=== PATIENT | female | born 1975 | race Caucasian/White ===

== ENCOUNTER 2017-01-22 15:32 | Emergency (ER) | payer BC, OTHER ==
[2017-01-22] MEDS ORDERED: EPINEPHrine 1 MG/ML SDV ONE (15:44)
[2017-01-22] MEDS ORDERED: methylPREDNISolone Sodium Succinate 125 MG/2 ML SDV ONE (15:45)
[2017-01-22] MEDS ORDERED: diphenhydrAMINE 50 MG/ML SDV ONE (15:45)
[2017-01-22 15:50] VITALS: BP 136/78
[2017-01-22] MEDS ORDERED: Sodium Chloride 0.9% 1,000 ML IV ONE (15:52)
[2017-01-22] MEDS ORDERED: diphenhydrAMINE 50 MG/ML SDV IVPUSH ONE (15:58)
[2017-01-22] MEDS ORDERED: EPINEPHrine 1 MG/ML SDV IM ONE (15:59)
[2017-01-22] MEDS ORDERED: methylPREDNISolone Sodium Succinate 125 MG/2 ML SDV IVPUSH ONE (15:59)
--- NOTE | 2017-01-22 17:07 | EDM.PDOC ---
ED HPI GENERAL MEDICAL PROBLEM - General Chief Complaint: Allergic Reaction Stated Complaint: ALLERGIC REACTION Time Seen by Provider: 01/22/17 15:47 Source of Information: Reports: Patient History Limitations: Reports: No Limitations - History of Present Illness INITIAL COMMENTS - FREE TEXT/NARRATIVE: The patient is a 41-year-old female with a known shellfish allergy who presents with an allergic reaction presumably to shellfish. She ate some sort of a roll from an restaurant that she suspects was containing shellfish. She very quickly began having shortness of breath, wheezing, and immediately came to the emergency department. She did not have access to her EpiPen so did not have any medications prior to arrival except for Benadryl. She states she drank this small cupful of the liquid Benadryl prior to arrival. No throat swelling or tongue swelling. Her main complaint is wheezing and coughing and shortness of breath. No rash or itching. States this feels similar to prior anaphylactic reactions that she's had previously. No recent illness. - Related Data Allergies Allergy/AdvReac Type Severity Reaction Status Date / Time morphine Allergy Intermediate Rash Verified 01/22/17 15:46 Penicillins Allergy Intermediate Rash Verified 01/22/17 15:46 Sulfa (Sulfonamide Allergy Intermediate Rash Verified 01/22/17 15:46 Antibiotics) hydromorphone HCl Allergy Itching Verified 01/22/17 15:46 [From Dilaudid] shellfish derived Allergy Anaphylactic Verified 01/22/17 15:46 Shock Home Meds: Home Meds Ondansetron [Zofran ODT] 4 mg PO Q6H PRN #20 tab.dis 09/26/15 [Rx] Orphenadrine [Norflex] 100 mg PO TID PRN #20 tab.er 09/26/15 [Rx] Progesterone,Micronized [Progesterone] 50 mg PO ASDIRECTED 09/26/15 [History] EPINEPHrine [Epipen] 0.3 mg IM ONETIME PRN #1 pack 01/22/17 [Rx] Past Medical History - Past Health History Medical/Surgical History: Denies Medical/Surgical History Genitourinary History: Reports: UTI, Recurrent Musculoskeletal History: Reports: Neck Pain, Chronic, Osteoarthritis, Other ( See Below) Neurological History: Reports: Migraines - Past Surgical History Other HEENT Surgeries/Procedures: Oral surgery bone implant left upper maxilla Neurological Surgical History: Reports: C-Spine Musculoskeletal Surgical History: Reports: Shoulder Surgery Social & Family History - Tobacco Use Smoking Status *Q: Never Smoker Years of Tobacco use: 24 Packs/Tins Daily: 0.3 Used Tobacco, but Quit: No Second Hand Smoke Exposure: No - Alcohol Use Days Per Week of Alcohol Use: 0 - Recreational Drug Use Recreational Drug Use: No - Living Situation & Occupation Living situation: Reports: , with Family Occupation: Employed ED ROS ALLERGIC REACTION - Review of Systems Review Of Systems: See Below Constitutional: Denies: Fever HEENT: Denies: Throat Pain Respiratory: Reports: Shortness of Breath, Wheezing Cardiovascular: Denies: Chest Pain Endocrine: Reports: No Symptoms GI/Abdominal: Denies: Vomiting Skin: Denies: Rash Neurological: Reports: No Symptoms ED EXAM GENERAL NO PERIP PULSE - Physical Exam Exam: See Below Exam Limited By: No Limitations General Appearance: Alert, Moderate Distress, Other (Coughing, wheezing) Eye Exam: Bilateral Eye: Normal Inspection Ears: Normal External Exam Nose: Normal Inspection, Normal Mucosa, No Blood Throat/Mouth: Normal Inspection, Normal Lips, Normal Oropharynx, Normal Voice, No Airway Compromise Head: Atraumatic, Normocephalic Neck: Normal Inspection, Supple, Non-Tender, Full Range of Motion Respiratory/Chest: Other (Mild tachypnea, mild distress, intractable coughing, mild wheezing in all vtial) Cardiovascular: Regular Rate, Rhythm, No Murmur, Tachycardia GI/Abdominal: Soft, Non-Tender, No Distention Extremities: Normal Inspection Neurological: Alert, Oriented, Normal Cognition, No Motor/Sensory Deficits Psychiatric: Normal Affect, Normal Mood Skin Exam: Warm, Dry, Intact, Normal Color Course - Vital Signs Last Recorded V/S: Last Vital Signs Temp 36.0 C 01/22/17 15:46 Pulse 99 01/22/17 15:46 Resp 18 01/22/17 15:46 BP 136/78 01/22/17 15:46 Pulse Ox 100 01/22/17 15:46 - Orders/Labs/Meds Meds: Medications Discontinued Medications Generic Name Dose Route Start Last Admin Trade Name Freq PRN Reason Stop Dose Admin Diphenhydramine HCl Confirm 01/22/17 15:45 01/22/17 16:03 Benadryl Administered 01/22/17 15:46 Not Given Dose 50 mg .ROUTE .STK-MED ONE Diphenhydramine HCl 25 mg 01/22/17 15:58 01/22/17 15:40 Benadryl IVPUSH 01/22/17 15:59 25 mg ONETIME ONE Administration Epinephrine HCl Confirm 01/22/17 15:44 01/22/17 16:04 Adrenalin 1:1000 Administered 01/22/17 15:45 Not Given Dose 1 mg .ROUTE .STK-MED ONE Epinephrine HCl 0.3 mg 01/22/17 15:59 01/22/17 15:40 Adrenalin 1:1000 IM 01/22/17 16:00 0.3 mg ONETIME ONE Administration Sodium Chloride 1,000 mls @ 1,000 mls/hr 01/22/17 15:52 01/22/17 16:11 Normal Saline IV 01/22/17 16:51 1,000 mls/hr ONETIME ONE Administration Methylprednisolone Sodium Succinate Confirm 01/22/17 15:45 01/22/17 16:03 Solu-Medrol Administered 01/22/17 15:46 Not Given Dose 125 mg .ROUTE .STK-MED ONE Methylprednisolone Sodium Succinate 125 mg 01/22/17 15:59 01/22/17 15:40 Solu-Medrol IVPUSH 01/22/17 16:00 125 mg ONETIME ONE Administration - Re-Assessments/Exams Free Text/Narrative Re-Assessment/Exam: 01/22/17 17:06 Patient markedly improved after IM epinephrine and IV solu-medrol and benadryl. Will observe. 01/22/17 18:04 Feeling much better. Requesting discharge. Discussed risk of biphasic reaction /recurrence of symptoms. Patient strongly prefers to be discharged. She lives nearby and is being discharged with rx for epipen. She will return if symptoms recur. Discussed return precautions. Departure - Departure Time of Disposition: 18:05 Disposition: Home, Self-Care 01 Clinical Impression: Anaphylaxis due to crustaceans Qualifiers: Encounter type: initial encounter Qualified Code(s): T78.02XA - Anaphylactic reaction due to shellfish (crustaceans), initial encounter - Discharge Information Prescriptions: EPINEPHrine [Epipen] 0.3 mg IM ONETIME PRN #1 pack PRN Reason: allergic reaction Referrals: Susana Miranda PA [Primary Care Provider] - Forms: ED Department Discharge
== END 2017-01-22 18:08 | disposition home or self-care (01) ==
LOC: JD.ED 15:32
DX: T78.02XA Anaphylactic reaction due to shellfish (crustaceans), initial encounter (principal); Z88.5 Allergy status to narcotic agent; Z88.0 Allergy status to penicillin; Z88.2 Allergy status to sulfonamides; Z91.013 Allergy to seafood
CPT/HCPCS: 96361; 96372; 96374; 96375; 99285; J0171; J1200; J2930; J7040; 99283

== ENCOUNTER 2017-06-11 15:49 | Emergency (ER) | payer BC ==
[2017-06-11 15:58] VITALS: BP 129/87
[2017-06-11] MEDS ORDERED: Famotidine 20 MG/2 ML SDV IVPUSH ONE ×2 (16:12→16:16)
[2017-06-11] MEDS ORDERED: Sodium Chloride 0.9% 1,000 ML IV ONE (16:12)
[2017-06-11] MEDS ORDERED: methylPREDNISolone Sodium Succinate 125 MG/2 ML SDV IVPUSH ONE (16:13)
--- NOTE | 2017-06-11 16:29 | EDM.PDOC ---
ED HPI GENERAL MEDICAL PROBLEM - General Chief Complaint: Allergic Reaction Stated Complaint: poss alergic reaction Time Seen by Provider: 06/11/17 15:57 Source of Information: Reports: Patient History Limitations: Reports: No Limitations - History of Present Illness INITIAL COMMENTS - FREE TEXT/NARRATIVE: The patient is a 41-year-old female with a history of anaphylaxis to shellfish who comes in with an allergic reaction. She was eating at a restaurant having not shows when she started feeling like she was having an allergic reaction. She gets tightness in her chest and difficulty breathing. She immediately self- administered intramuscular epinephrine and also take 50 mg of Benadryl. She states she is feeling a little bit better now. No throat tightness or swelling or difficulty speaking or swallowing. She does still have some sensation of tightness in her chest. No shortness of breath at this time. Mild cough. No rash or itching. No vomiting. No additional complaint. No recent illness. - Related Data Allergies Allergy/AdvReac Type Severity Reaction Status Date / Time morphine Allergy Intermediate Rash Verified 01/22/17 15:46 Penicillins Allergy Intermediate Rash Verified 01/22/17 15:46 Sulfa (Sulfonamide Allergy Intermediate Rash Verified 01/22/17 15:46 Antibiotics) hydromorphone HCl Allergy Itching Verified 01/22/17 15:46 [From Dilaudid] shellfish derived Allergy Anaphylactic Verified 01/22/17 15:46 Shock Home Meds: Home Meds Ondansetron [Zofran ODT] 4 mg PO Q6H PRN #20 tab.dis 09/26/15 [Rx] Orphenadrine [Norflex] 100 mg PO TID PRN #20 tab.er 09/26/15 [Rx] Progesterone,Micronized [Progesterone] 50 mg PO ASDIRECTED 09/26/15 [History] EPINEPHrine [Epipen 2-Justin] 0.3 mg IM ONETIME PRN #1 pack 06/11/17 [Rx] Past Medical History - Past Health History Medical/Surgical History: Denies Medical/Surgical History Genitourinary History: Reports: UTI, Recurrent Musculoskeletal History: Reports: Neck Pain, Chronic, Osteoarthritis Neurological History: Reports: Migraines - Past Surgical History Other HEENT Surgeries/Procedures: Oral surgery bone implant left upper maxilla Neurological Surgical History: Reports: C-Spine Musculoskeletal Surgical History: Reports: Shoulder Surgery Social & Family History - Tobacco Use Smoking Status *Q: Never Smoker Years of Tobacco use: 24 Packs/Tins Daily: 0.3 Used Tobacco, but Quit: No Second Hand Smoke Exposure: No - Caffeine Use Caffeine Use: Reports: None - Alcohol Use Days Per Week of Alcohol Use: 0 - Recreational Drug Use Recreational Drug Use: No - Living Situation & Occupation Living situation: Reports: , with Family Occupation: Employed ED ROS ALLERGIC REACTION - Review of Systems Review Of Systems: See Below Constitutional: Denies: Fever HEENT: Reports: No Symptoms Respiratory: Reports: Shortness of Breath, Wheezing Cardiovascular: Denies: Chest Pain Endocrine: Reports: No Symptoms GI/Abdominal: Denies: Abdominal Pain Musculoskeletal: Reports: No Symptoms Skin: Denies: Rash, Urticaria Neurological: Reports: No Symptoms Immunologic: Reports: Anaphylaxis, Food Allergy ED EXAM GENERAL NO PERIP PULSE - Physical Exam Exam: See Below Exam Limited By: No Limitations General Appearance: Alert, WD/WN, No Apparent Distress Eye Exam: Bilateral Eye: Normal Inspection Ears: Normal External Exam Nose: Normal Inspection, Normal Mucosa, No Blood Throat/Mouth: Normal Inspection, Normal Lips, Normal Oropharynx, Normal Voice, No Airway Compromise Head: Atraumatic, Normocephalic Neck: Normal Inspection, Supple, Non-Tender, Full Range of Motion, Other (no posterior pharynx swelling) Respiratory/Chest: No Respiratory Distress, Lungs Clear, Normal Breath Sounds, No Accessory Muscle Use, Chest Non-Tender Cardiovascular: Normal Peripheral Pulses, Regular Rate, Rhythm, No Edema, No Murmur GI/Abdominal: Soft, Non-Tender, No Distention. No: Rebound Back Exam: Normal Inspection Extremities: Normal Inspection Neurological: Alert, Oriented, Normal Cognition, No Motor/Sensory Deficits Psychiatric: Normal Affect Skin Exam: Warm, Dry, Intact, Normal Color, No Rash Course - Vital Signs Last Recorded V/S: Last Vital Signs Temp 37.0 C 06/11/17 15:57 Pulse 95 06/11/17 15:57 Resp 20 06/11/17 15:57 BP 129/87 06/11/17 15:57 Pulse Ox 100 06/11/17 15:57 - Orders/Labs/Meds Meds: Medications Discontinued Medications Generic Name Dose Route Start Last Admin Trade Name Freq PRN Reason Stop Dose Admin Famotidine 20 mg 06/11/17 16:12 06/11/17 16:19 Pepcid IVPUSH 06/11/17 16:13 20 mg ONETIME ONE Administration Famotidine 20 mg 06/11/17 16:16 06/11/17 16:19 Pepcid IVPUSH 06/11/17 16:17 20 mg ONETIME ONE Administration Sodium Chloride 1,000 mls @ 999 mls/hr 06/11/17 16:12 06/11/17 16:18 Normal Saline IV 06/11/17 17:12 999 mls/hr ONETIME ONE Administration Methylprednisolone Sodium Succinate 125 mg 06/11/17 16:13 06/11/17 16:17 Solu-Medrol IVPUSH 06/11/17 16:14 125 mg ONETIME ONE Administration - Re-Assessments/Exams Free Text/Narrative Re-Assessment/Exam: 06/11/17 18:16 Continues to feel well. Offered further observation in the emergency department or discharge home with return precautions, she lives less than a mile from the emergency department and would prefer to go home and I will refill her EpiPen prescription as well. Discussed return precautions. Departure - Departure Time of Disposition: 18:17 Disposition: Home, Self-Care 01 Clinical Impression: Allergic reaction Qualifiers: Encounter type: initial encounter Qualified Code(s): T78.40XA - Allergy, unspecified, initial encounter - Discharge Information Prescriptions: EPINEPHrine [Epipen 2-Justin] 0.3 mg IM ONETIME PRN #1 pack PRN Reason: allergic reaction Referrals: Susana Miranda PA [Primary Care Provider] - Forms: ED Department Discharge Additional Instructions: 1. Return to the Emergency Department if you have any new shortness of breath or other concerning allergy symptoms. Otherwise follow up with your primary doctor as needed.
== END 2017-06-11 18:00 | disposition home or self-care (01) ==
LOC: JD.ED 15:49
DX: T78.40XA Allergy, unspecified, initial encounter (principal); R07.89 Other chest pain; R06.00 Dyspnea, unspecified; Z88.5 Allergy status to narcotic agent; Z88.2 Allergy status to sulfonamides; Z88.0 Allergy status to penicillin; Z91.013 Allergy to seafood; Z79.899 Other long term (current) drug therapy
CPT/HCPCS: 96361; 96374; 96375; 99285; J2930; J7040; 99284

== ENCOUNTER 2017-10-21 19:22 | Emergency (ER) | payer BC ==
[2017-10-21] MEDS ORDERED: Sodium Chloride 0.9% 1,000 ML IV SCH (19:30)
[2017-10-21] MEDS ORDERED: EPINEPHrine 1 MG/ML SDV ONE (19:31)
[2017-10-21] MEDS ORDERED: diphenhydrAMINE 50 MG/ML SDV ONE (19:31)
[2017-10-21] MEDS ORDERED: EPINEPHrine 1 MG/ML SDV SUBCUT ONE (19:31)
[2017-10-21] MEDS ORDERED: methylPREDNISolone Sodium Succinate 125 MG/2 ML SDV IVPUSH ONE (19:31)
[2017-10-21] MEDS ORDERED: Famotidine 20 MG/2 ML SDV IVPUSH ONE (19:31)
[2017-10-21] MEDS ORDERED: diphenhydrAMINE 50 MG/ML SDV IVPUSH ONE (19:31)
[2017-10-21] MEDS ORDERED: Famotidine 20 MG/2 ML SDV ONE (19:32)
[2017-10-21] MEDS ORDERED: methylPREDNISolone Sodium Succinate 125 MG/2 ML SDV ONE (19:32)
--- NOTE | 2017-10-21 19:35 | EDM.PDOC ---
ED HPI GENERAL MEDICAL PROBLEM - General Chief Complaint: Allergic Reaction Stated Complaint: ALLERGIC REACTION Time Seen by Provider: 10/21/17 19:27 Source of Information: Reports: Patient History Limitations: Reports: No Limitations - History of Present Illness INITIAL COMMENTS - FREE TEXT/NARRATIVE: 42-year-old female presents the ED with acute allergic reaction. Patient states she was eating out tonight. She believes her food may have been can cross contaminated with some shellfish ingredients. She is known to be allergic to shellfish product. The symptoms within 5-10 minutes of eating. About throat closure feels like it is swelling close. She also feels in her upper chest with difficulty breathing and a nonproductive cough. No systemic signs of illness such as generalized pruritus or erythema. She has never had hives before .Last significant allergic response was 2 years ago which time she required epinephrine and epinephrine drip due to development of anaphylaxis and then was air flighted out to [place]. I don't remember caring for although she indicates that I did so. She states current symptoms feel similar to what she experienced in the past. Onset: Today Onset Date: 10/21/17 Onset Time: 19:00 Duration: Minutes: Location: Reports: Neck, Chest (Like her throat is closing in chest heaviness upper anterior with nonproductive cough. No audible wheezing.) Quality: Reports: Other Severity: Moderate (Feels pressure like his throat is closing in.) Improves with: Reports: None Worsens with: Reports: None Context: Reports: Other (Occurred spontaneously after eating food that she believes may been cross contaminated with shellfish product which she is known to be allergic to.). Denies: Activity, Exercise, Lifting, Sick Contact, Trauma Associated Symptoms: Reports: No Other Symptoms, Chest Pain (Upper chest heaviness more at the suprasternal notch area and central chest.), Cough, Shortness of Breath (Subjective sensation of being short of breath). Denies: Confusion, cough w sputum (Nonproductive), Diaphoresis, Fever/Chills, Headaches , Loss of Appetite, Malaise, Nausea/Vomiting, Rash, Seizure, Syncope, Weakness Treatments MARKETING INFORMATION COORDINATOR: Reports: Other (see below) (None.) - Related Data Allergies Allergy/AdvReac Type Severity Reaction Status Date / Time morphine Allergy Intermediate Rash Verified 01/22/17 15:46 Penicillins Allergy Intermediate Rash Verified 01/22/17 15:46 Sulfa (Sulfonamide Allergy Intermediate Rash Verified 01/22/17 15:46 Antibiotics) hydromorphone HCl Allergy Itching Verified 01/22/17 15:46 [From Dilaudid] shellfish derived Allergy Anaphylactic Verified 01/22/17 15:46 Shock Home Meds: Home Meds Ondansetron [Zofran ODT] 4 mg PO Q6H PRN #20 tab.dis 09/26/15 [Rx] Orphenadrine [Norflex] 100 mg PO TID PRN #20 tab.er 09/26/15 [Rx] Progesterone,Micronized [Progesterone] 50 mg PO ASDIRECTED 09/26/15 [History] EPINEPHrine [Epipen 2-Justin] 0.3 mg IM ONETIME PRN #1 pack 06/11/17 [Rx] predniSONE [Prednisone] 20 mg PO BID #6 tablet 10/21/17 [Rx] Past Medical History - Past Health History Medical/Surgical History: Denies Medical/Surgical History Genitourinary History: Reports: UTI, Recurrent Musculoskeletal History: Reports: Neck Pain, Chronic, Osteoarthritis Neurological History: Reports: Migraines - Past Surgical History Other HEENT Surgeries/Procedures: Oral surgery bone implant left upper maxilla Neurological Surgical History: Reports: C-Spine Musculoskeletal Surgical History: Reports: Shoulder Surgery Social & Family History - Caffeine Use Caffeine Use: Reports: None - Living Situation & Occupation Living situation: Reports: , with Family Occupation: Employed ED ROS ALLERGIC REACTION - Review of Systems Review Of Systems: See Below Constitutional: Denies: Fever, Chills, Malaise, Weakness, Fatigue, Weight Loss HEENT: Reports: Throat Swelling Respiratory: Reports: Shortness of Breath (Shortness of breath with nonproductive cough), Cough. Denies: Wheezing, Pleuritic Chest Pain ( as a heaviness in her upper anterior chest.), Sputum, Hemoptysis (Nonproductive), Other Cardiovascular: Denies: Blood Pressure Problem Endocrine: Reports: No Symptoms GI/Abdominal: Reports: No Symptoms : Reports: No Symptoms Musculoskeletal: Reports: Other Skin: Reports: No Symptoms (Chronic neck and low back pain.) Neurological: Reports: No Symptoms Psychiatric: Reports: No Symptoms Hematologic/Lymphatic: Reports: No Symptoms Immunologic: Reports: No Symptoms ED EXAM GENERAL NO PERIP PULSE - Physical Exam Exam: See Below Exam Limited By: No Limitations General Appearance: Alert, WD/WN, Moderate Distress, Other (Skin appears to be mildly erythematous without hives.) Eye Exam: Bilateral Eye: Normal Inspection Ears: Normal TMs Nose: Normal Inspection Throat/Mouth: Normal Inspection, Normal Lips, Normal Teeth, Normal Oropharynx, Other (Uvula or floor of mouth show no swelling.) Head: Atraumatic, Normocephalic. No: Facial Swelling Neck: Normal Inspection, Supple, Non-Tender, Full Range of Motion. No: Lymphadenopathy (L), Lymphadenopathy (R) Respiratory/Chest: Respiratory Distress (Mild tachypnea at rest.). No: Decreased Breath Sounds, Crackles, Rales, Rhonchi, Wheezing, Splinting Cardiovascular: Normal Peripheral Pulses, Regular Rate, Rhythm, No Edema, No Gallop, No Murmur GI/Abdominal: Normal Bowel Sounds, Soft, Non-Tender, No Organomegaly Extremities: Normal Inspection, Normal Range of Motion, Non-Tender, No Pedal Edema Neurological: Alert, Oriented, CN II-XII Intact, Normal Cognition, Normal Gait Psychiatric: Normal Affect, Normal Mood Skin Exam: Warm, Intact, Normal Color, Erythema (Mild diffuse erythema. This is very faint at present) Course - Orders/Labs/Meds Orders: Active Orders 24 hr Category Date Time Status Sodium Chloride 0.9% [Normal Saline] 1,000 ml Med 10/21/17 19:30 Active IV ASDIRECTED Medication Orders Sodium Chloride (Normal Saline) 1,000 mls @ 500 mls/hr IV ASDIRECTED RIGOBERTO Last Admin: 10/21/17 19:40 Dose: 500 mls/hr Meds: Medications Generic Name Dose Route Start Last Admin Trade Name Freq PRN Reason Stop Dose Admin Sodium Chloride 1,000 mls @ 500 mls/hr 10/21/17 19:30 10/21/17 19:40 Normal Saline IV 500 mls/hr ASDIRECTED RIGOBERTO Administration Discontinued Medications Generic Name Dose Route Start Last Admin Trade Name Freq PRN Reason Stop Dose Admin Diphenhydramine HCl 50 mg 10/21/17 19:31 10/21/17 19:36 Benadryl IVPUSH 10/21/17 19:32 50 mg ONETIME ONE Administration Diphenhydramine HCl Confirm 10/21/17 19:31 10/21/17 19:37 Benadryl Administered 10/21/17 19:32 Not Given Dose 50 mg .ROUTE .STK-MED ONE Epinephrine HCl 0.3 mg 10/21/17 19:31 10/21/17 19:37 Adrenalin SUBCUT 10/21/17 19:32 0.3 mg ONETIME ONE Administration Epinephrine HCl Confirm 10/21/17 19:31 10/21/17 19:37 Adrenalin Administered 10/21/17 19:32 Not Given Dose 1 mg .ROUTE .STK-MED ONE Famotidine 20 mg 10/21/17 19:31 10/21/17 19:36 Pepcid IVPUSH 10/21/17 19:32 20 mg ONETIME ONE Administration Famotidine Confirm 10/21/17 19:32 10/21/17 19:37 Pepcid Administered 10/21/17 19:33 Not Given Dose 20 mg .ROUTE .STK-MED ONE Methylprednisolone Sodium Succinate 125 mg 10/21/17 19:31 10/21/17 19:36 Solu-Medrol IVPUSH 10/21/17 19:32 125 mg ONETIME ONE Administration Methylprednisolone Sodium Succinate Confirm 10/21/17 19:32 10/21/17 19:37 Solu-Medrol Administered 10/21/17 19:33 Not Given Dose 125 mg .ROUTE .STK-MED ONE - Radiology Interpretation Free Text/Narrative:: 42-year-old female presents to the ED with sudden onset of feeling of allergic reaction with swelling in the back of her throat and upper anterior chest heaviness. Within 10 minutes of eating food tonight that she believes may been cross contaminated accidentally with shellfish product which is known to be severely allergic to. Last allergic reaction was about 2 years ago when she developed anaphylactic shock requiring epinephrine drip and aggressive management. She does not have her EpiPen with her. Has no hives at present. She has no wheezes. Her oropharynx is clear with no swelling of the uvula or floor of her mouth. Pressure in the back of her throat with a nonproductive cough or illness symptoms. There may be mild diffuse erythema. Plan because of her history she'll be treated with subcutaneous epinephrine 0.3 mg 4 in the form. She will then receive Pepcid 20 mg IV with Benadryl 50 mg IV and Solu-Medrol 125 mg IV. - Re-Assessments/Exams Free Text/Narrative Re-Assessment/Exam: 10/21/17 20:01 patient feels her symptoms are slowly resolving. Certainly no worse than she was when she presented. 10/21/17 20:27 patient is feeling better. Her faint erythema is now gone. She has not developed any hives or itching. Watch her for another half an hour or so to make sure she doesn't have any rebound after receiving epinephrine subcutaneous. 10/21/17 21:00 feels pretty well back to normal. Other than being fatigued from the Benadryl. Will place her on prednisone 20 mg twice a day for the next 3 days. She will use Benadryl 50 mg by mouth every 6 hours if needed for any recurrence of symptoms and if not improved she will return to the ED. Departure - Departure Time of Disposition: 21:01 Disposition: Home, Self-Care 01 Condition: Fair Clinical Impression: Acute allergic reaction Qualifiers: Encounter type: initial encounter Qualified Code(s): T78.40XA - Allergy, unspecified, initial encounter - Discharge Information *PRESCRIPTION DRUG MONITORING PROGRAM REVIEWED*: Not Applicable *COPY OF PRESCRIPTION DRUG MONITORING REPORT IN PATIENT JUAN JOSÉ: Not Applicable Prescriptions: predniSONE [Prednisone] 20 mg PO BID #6 tablet Referrals: Susana Miranda PA [Primary Care Provider] - Forms: ED Department Discharge Additional Instructions: Evaluation in the emergency him today in regards to development of allergic reaction symptoms with throat closure in a vertex respiratory difficulties. Associated paroxysmal nonproductive cough without wheeze. Secured within about 10 minutes of eating supper tonight which she believes may have been cross contaminated with some shellfish product. You noted to have severe shellfish allergy with previous anaphylactic shock. Treated aggressively with epinephrine 0.3 mg subcutaneously. You are given Solu-Medrol 125 mg IV with Pepcid 20 mg IV and Benadryl 50 mg IV for acute allergic reaction. Symptoms slowly abated while you were in the ED. The steroid given in the ED usually kicks in about 4 hours after was given and usually prevents any late allergic reactions. Due to severe response in the past I would suggest use of prednisone 20 mg with breakfast and supper for the next 3 days to prevent any recurrence of allergic response. If you develop further symptoms use Benadryl 50 mg by mouth every 6 hours as needed. Return to the ED if symptoms worsen in spite of aggressive treatment. - My Orders Last 24 Hours: My Active Orders 10/21/17 19:30 Sodium Chloride 0.9% [Normal Saline] 1,000 ml IV ASDIRECTED - Assessment/Plan Last 24 Hours: My Active Orders 10/21/17 19:30 Sodium Chloride 0.9% [Normal Saline] 1,000 ml IV ASDIRECTED
[2017-10-21 21:04] VITALS: BP 134/86
== END 2017-10-21 21:18 | disposition home or self-care (01) ==
LOC: JD.ED 19:22
DX: T78.1XXA Other adverse food reactions, not elsewhere classified, initial encounter (principal); R06.00 Dyspnea, unspecified; R05 Cough; R07.9 Chest pain, unspecified; Z88.0 Allergy status to penicillin; Z88.5 Allergy status to narcotic agent; Z91.013 Allergy to seafood; Z88.2 Allergy status to sulfonamides
CPT/HCPCS: 96361; 96372; 96374; 96375; 99284; J0171; J1200; J2930; J3490; J7040

== ENCOUNTER 2018-07-01 00:05 | Emergency (ER) | payer BC ==
[2018-07-01 00:17] VITALS: BP 112/84
[2018-07-01] MEDS ORDERED: Aspirin 81 MG Tab.Chew PO ONE (00:48)
--- NOTE | 2018-07-01 04:14 | EDM.PDOC ---
ED HPI GENERAL MEDICAL PROBLEM - General Chief Complaint: Chest Pain Stated Complaint: CHEST PAIN Time Seen by Provider: 07/01/18 00:09 - History of Present Illness INITIAL COMMENTS - FREE TEXT/NARRATIVE: 42-year-old female presents emergency room with chest pain This has pretty well resolved lasted about 30 minutes the patient was sitting in a pickup truck and developed substernal pain that radiated into her left neck left arm and she had some associated diaphoresis. The patient has had intermittent episodes like this albeit not this severe in the past. This is never been worked up she's never been diagnosed with coronary artery disease. The patient smokes does not have a history of hypertension or hyperlipidemia she has a very strong family history of coronary artery disease her siblings are all younger than her and healthy all the older relatives have from coronary events the patient does not take daily aspirin. - Related Data Allergies Allergy/AdvReac Type Severity Reaction Status Date / Time morphine Allergy Intermediate Rash Verified 07/01/18 00:17 Penicillins Allergy Intermediate Rash Verified 07/01/18 00:17 Sulfa (Sulfonamide Allergy Intermediate Rash Verified 07/01/18 00:17 Antibiotics) hydromorphone HCl Allergy Itching Verified 07/01/18 00:17 [From Dilaudid] shellfish derived Allergy Anaphylactic Verified 07/01/18 00:17 Shock Home Meds: Home Meds Progesterone,Micronized [Progesterone] 50 mg PO ASDIRECTED 09/26/15 [History] EPINEPHrine [Epipen 2-Justin] 0.3 mg IM ONETIME PRN #1 pack 06/11/17 [Rx] Estrogen Injection. 1 injection INJECT ASDIRECTED 07/01/18 [History] Spironolactone [Aldactone] 50 mg PO DAILY 07/01/18 [History] Testosterone Injection. 1 injection INJECT ASDIRECTED 07/01/18 [History] Past Medical History - Past Health History Medical/Surgical History: Denies Medical/Surgical History Genitourinary History: Reports: UTI, Recurrent Musculoskeletal History: Reports: Neck Pain, Chronic, Osteoarthritis Neurological History: Reports: Migraines - Past Surgical History Other HEENT Surgeries/Procedures: Oral surgery bone implant left upper maxilla Neurological Surgical History: Reports: C-Spine Musculoskeletal Surgical History: Reports: Shoulder Surgery Social & Family History - Tobacco Use Smoking Status *Q: Never Smoker Second Hand Smoke Exposure: No - Caffeine Use Caffeine Use: Reports: Coffee - Recreational Drug Use Recreational Drug Use: No - Living Situation & Occupation Living situation: Reports: , with Family Occupation: Employed ED ROS GENERAL - Review of Systems Review Of Systems: See Below Constitutional: Reports: No Symptoms HEENT: Reports: No Symptoms Respiratory: Reports: No Symptoms Cardiovascular: Reports: Chest Pain. Denies: Dyspnea on Exertion, Edema, Lightheadedness Endocrine: Reports: No Symptoms GI/Abdominal: Reports: No Symptoms : Reports: No Symptoms Neurological: Reports: No Symptoms Psychiatric: Reports: No Symptoms ED EXAM, GENERAL - Physical Exam Exam: See Below Exam Limited By: No Limitations General Appearance: Alert, No Apparent Distress Head: Atraumatic, Normocephalic Neck: Normal Inspection, Supple, Non-Tender, Full Range of Motion. No: Lymphadenopathy (L), Lymphadenopathy (R) Respiratory/Chest: No Respiratory Distress, Lungs Clear, Normal Breath Sounds Cardiovascular: Normal Peripheral Pulses, Regular Rate, Rhythm, No Edema GI/Abdominal: Normal Bowel Sounds, Soft, Non-Tender Back Exam: Normal Inspection. No: CVA Tenderness (L), CVA Tenderness (R) Extremities: Normal Inspection, No Pedal Edema EKG INTERPRETATION Rhythm: NSR Cullen: Normal P-Wave: Present QRS: Normal ST-T: Normal QT: Normal Comparison: NA - No Prior EKG EKG Interpretation Comments: A second EKG was obtained with a second troponin which is unchanged Course - Vital Signs Last Recorded V/S: Last Vital Signs Temp 36.2 C 07/01/18 00:14 Pulse 66 07/01/18 00:14 Resp 16 07/01/18 00:14 BP 112/84 07/01/18 00:14 Pulse Ox 100 07/01/18 00:14 - Orders/Labs/Meds Orders: Active Orders 24 hr Category Date Time Status EKG Documentation Completion [RC] STAT Care 07/01/18 00:14 Active EKG Documentation Completion [RC] STAT Care 07/01/18 00:45 Active Chest 1V Frontal [CR] Stat Exams 07/01/18 00:44 Taken Labs: Laboratory Tests 07/01/18 07/01/18 07/01/18 Range/Units 01:00 01:00 01:00 WBC 10.08 H (3.98-10.04) K/mm3 RBC 4.47 (3.98-5.22) M/mm3 Hgb 13.5 (11.2-15.7) gm/L Hct 40.8 (34.1-44.9) % MCV 91.3 (79.4-94.8) fl MCH 30.2 (25.6-32.2) pg MCHC 33.1 (32.2-35.5) g/dl RDW Std Deviation 40.9 (36.4-46.3) fL Plt Count 316 (182-369) K/mm3 MPV 10.6 (9.4-12.3) fl Neutrophils % (Manual) 61 H (40-60) % Band Neutrophils % 0 (0-10) % Lymphocytes % (Manual) 35 (20-40) % Atypical Lymphs % 0 % Monocytes % (Manual) 2 (2-10) % Eosinophils % (Manual) 2 (0.7-5.8) % Basophils % (Manual) 0 L (0.1-1.2) Platelet Estimate Adequate Plt Morphology Comment Normal RBC Morph Comment Normal PT 10.4 (9.5-12.1) SECONDS INR 0.95 APTT 29 (24-31) SECONDS Sodium 141 (136-145) mEq/L Potassium 3.3 L (3.5-5.1) mEq/L Chloride 107 (98-107) mEq/L Carbon Dioxide 24 (21-32) mEq/L Anion Gap 13.3 (5-15) BUN 9 (7-18) mg/dL Creatinine 0.7 (0.55-1.02) mg/dL Est Cr Clr Drug Dosing 84.49 mL/min Estimated GFR (MDRD) > 60 (>60) mL/min BUN/Creatinine Ratio 12.9 L (14-18) Glucose 117 H (74-106) mg/dL Calcium 9.0 (8.5-10.1) mg/dL Total Bilirubin 0.4 (0.2-1.0) mg/dL AST 24 (15-37) U/L ALT 36 (14-59) U/L Alkaline Phosphatase 76 (46-116) U/L Troponin I < 0.017 (0.00-0.056) ng/mL Total Protein 7.0 (6.4-8.2) g/dl Albumin 3.7 (3.4-5.0) g/dl Globulin 3.3 gm/dL Albumin/Globulin Ratio 1.1 (1-2) 07/01/18 Range/Units 03:10 WBC (3.98-10.04) K/mm3 RBC (3.98-5.22) M/mm3 Hgb (11.2-15.7) gm/L Hct (34.1-44.9) % MCV (79.4-94.8) fl MCH (25.6-32.2) pg MCHC (32.2-35.5) g/dl RDW Std Deviation (36.4-46.3) fL Plt Count (182-369) K/mm3 MPV (9.4-12.3) fl Neutrophils % (Manual) (40-60) % Band Neutrophils % (0-10) % Lymphocytes % (Manual) (20-40) % Atypical Lymphs % % Monocytes % (Manual) (2-10) % Eosinophils % (Manual) (0.7-5.8) % Basophils % (Manual) (0.1-1.2) Platelet Estimate Plt Morphology Comment RBC Morph Comment PT (9.5-12.1) SECONDS INR APTT (24-31) SECONDS Sodium (136-145) mEq/L Potassium (3.5-5.1) mEq/L Chloride (98-107) mEq/L Carbon Dioxide (21-32) mEq/L Anion Gap (5-15) BUN (7-18) mg/dL Creatinine (0.55-1.02) mg/dL Est Cr Clr Drug Dosing mL/min Estimated GFR (MDRD) (>60) mL/min BUN/Creatinine Ratio (14-18) Glucose (74-106) mg/dL Calcium (8.5-10.1) mg/dL Total Bilirubin (0.2-1.0) mg/dL AST (15-37) U/L ALT (14-59) U/L Alkaline Phosphatase (46-116) U/L Troponin I < 0.017 (0.00-0.056) ng/mL Total Protein (6.4-8.2) g/dl Albumin (3.4-5.0) g/dl Globulin gm/dL Albumin/Globulin Ratio (1-2) Meds: Medications Discontinued Medications Generic Name Dose Route Start Last Admin Trade Name Freq PRN Reason Stop Dose Admin Aspirin 324 mg 07/01/18 00:48 07/01/18 00:53 Aspirin PO 07/01/18 00:49 324 mg ONETIME ONE Administration - Re-Assessments/Exams Free Text/Narrative Re-Assessment/Exam: 07/01/18 04:15 Labs are unrevealing chest x-ray unrevealing patient had a second troponin that was unrevealing. Had a long talk with the patient it is crucial that she quit smoking. It is also strongly recommended that she follow-up with her regular physician and obtain a exercise stress test with Cardiolite or echo images. She should be screened very closely for hyperlipidemia diabetes and have frequent monitoring of her blood pressure the patient should start a baby aspirin daily. Departure - Departure Time of Disposition: 04:16 Disposition: DC/Tfer to [facility] Reason for Transfer *Q: Other Clinical Impression: Chest pain Referrals: Roselia Miranda PA [Primary Care Provider] - Additional Instructions: Return to the emergency room with any questions problems worsening symptoms. Follow-up with your regular provider early this next week. It is vitally important that you quit smoking. With your follow-up in the clinic this next week discuss different strategies to quit smoking discuss and schedule a cardiac stress test with Cardiolite or echo images. Start daily baby aspirin 81 mg enteric-coated - My Orders Last 24 Hours: My Active Orders 07/01/18 00:14 EKG Documentation Completion [RC] STAT 07/01/18 00:44 Chest 1V Frontal [CR] Stat 07/01/18 00:45 EKG Documentation Completion [RC] STAT - Assessment/Plan Last 24 Hours: My Active Orders 07/01/18 00:14 EKG Documentation Completion [RC] STAT 07/01/18 00:44 Chest 1V Frontal [CR] Stat 07/01/18 00:45 EKG Documentation Completion [RC] STAT
--- NOTE | 2018-07-01 11:10 | CR ---
Chest: Portable view of the chest was obtained. Comparison: Previous chest x-ray of 02/23/16. Heart size and mediastinum are within normal limits for portable technique. Lungs are clear. Single surgical anchor is noted within the proximal humerus. Prior cervical spine surgery is noted. No acute osseous abnormality is appreciated. Surgical clips are seen from prior cholecystectomy. Impression: 1. Previous surgery as noted above. Nothing acute is appreciated on portable chest x-ray. Diagnostic code #2
== END 2018-07-01 04:29 | disposition home or self-care (01) ==
LOC: JD.ED 00:05
DX: R07.2 Precordial pain (principal); Z88.5 Allergy status to narcotic agent; Z88.8 Allergy status to other drugs, medicaments and biological substances; Z88.2 Allergy status to sulfonamides; Z79.899 Other long term (current) drug therapy
CPT/HCPCS: 36415; 71045; 80053; 84484; 85007; 85027; 85610; 85730; 93005; 99285; A9270; 93010; 99283

== ENCOUNTER 2020-06-03 19:46 | Emergency (ER) | payer BC ==
[2020-06-03 20:20] VITALS: BP 128/80; PULSE 68
--- NOTE | 2020-06-03 20:42 | EDM.PDOC ---
ED HPI GENERAL MEDICAL PROBLEM - General Chief Complaint: Lower Extremity Injury/Pain Stated Complaint: ANKLE INJURY Time Seen by Provider: 06/03/20 19:50 Source of Information: Reports: Patient History Limitations: Reports: No Limitations - History of Present Illness INITIAL COMMENTS - FREE TEXT/NARRATIVE: A short while before presentation the patient fell down her stairs at home. It was not a hard fall, she did not hit her head, no serious injury other than she twisted her left ankle and now has pain and can no longer bear weight on that side. She has no underlying risk factors. There is been no treatment prior to arrival other than placing a cold pack on the affected area. She has had a hysterectomy in the past. Left Ankle Pain Score (Numeric/FACES): 7 - Related Data Allergies Allergy/AdvReac Type Severity Reaction Status Date / Time morphine Allergy Intermediate Rash Verified 06/03/20 19:54 Penicillins Allergy Intermediate Rash Verified 06/03/20 19:54 Sulfa (Sulfonamide Allergy Intermediate Rash Verified 06/03/20 19:54 Antibiotics) hydromorphone HCl Allergy Itching Verified 06/03/20 19:54 [From Dilaudid] shellfish derived Allergy Anaphylactic Verified 06/03/20 19:54 Shock Home Meds: Home Meds Progesterone, Micronized [Progesterone] 50 mg PO ASDIRECTED 09/26/15 [History] EPINEPHrine [Epipen 2-Justin] 0.3 mg IM ONETIME PRN #1 pack 06/11/17 [Rx] Estrogen Injection. 1 injection INJECT ASDIRECTED 07/01/18 [History] Testosterone Injection. 1 injection INJECT ASDIRECTED 07/01/18 [History] Past Medical History - Past Health History Medical/Surgical History: Denies Medical/Surgical History Genitourinary History: Reports: UTI, Recurrent Musculoskeletal History: Reports: Neck Pain, Chronic, Osteoarthritis Neurological History: Reports: Migraines - Past Surgical History Other HEENT Surgeries/Procedures: Oral surgery bone implant left upper maxilla Female Surgical History: Reports: Hysterectomy Neurological Surgical History: Reports: C-Spine Musculoskeletal Surgical History: Reports: Shoulder Surgery Social & Family History - Tobacco Use Tobacco Use Status *Q: Current Some Day Tobacco User Years of Tobacco use: 28 Packs/Tins Daily: 0.4 Second Hand Smoke Exposure: No - Caffeine Use Caffeine Use: Reports: Tea - Recreational Drug Use Recreational Drug Use: No - Living Situation & Occupation Living situation: Reports: , with Family Occupation: Employed Review of Systems - Review of Systems Review Of Systems: Comprehensive ROS is negative, except as noted in HPI. ED EXAM, GENERAL - Physical Exam Exam: See Below Free Text/Narrative:: Patient is alert and in no distress. Head is normocephalic atraumatic. EOMI PERRLA. Neck is supple without jugular venous distention. Chest is symmetrical with normal breath sounds full and equal bilaterally. Heart is regular. Abdomen is soft and nontender no flank tenderness. No peripheral edema cyanosis or clubbing of the digits. Neurologically she is grossly intact with fluent speech normal cognition and no sensory or motor deficit. On exam of the left ankle there is no deformity no instability. No discoloration no open skin. No ecchymosis other than a very slight amount distal to the ankle as not unexpected. There is mild tenderness on deep palpation. Course - Vital Signs Text/Narrative:: Complete x-rays of left ankle negative for any fracture or dislocation. Radiology report is pending. As patient says she cannot bear weight on that side we are putting her in a walking boot and issuing crutches with weightbearing as tolerated. Instructed if this does not resolve spontaneously with cold pack elevation and rest she is to see orthopedist and is referred. Last Recorded V/S: Last Vital Signs Temp 37.7 C 06/03/20 19:59 Pulse 68 06/03/20 19:59 Resp 16 06/03/20 19:59 BP 128/80 06/03/20 19:59 Pulse Ox 100 06/03/20 19:59 - Orders/Labs/Meds Orders: Active Orders 24 hr Category Date Time Status Ankle Min 3V Lt [CR] Stat Exams 06/03/20 20:01 Taken DME for Discharge [COMM] Stat Oth 06/03/20 20:32 Ordered DME for Discharge [COMM] Stat Oth 06/03/20 20:33 Ordered Departure - Departure Time of Disposition: 20:42 Disposition: Home, Self-Care 01 Condition: Good Clinical Impression: Left ankle sprain Qualifiers: Encounter type: initial encounter Involved ligament of ankle: unspecified ligament Qualified Code(s): S93.402A - Sprain of unspecified ligament of left ankle, initial encounter - Discharge Information Referrals: Triny Yang PA-C [Primary Care Provider] - Additional Instructions: You have been seen for sprain of your left ankle. No fracture has been identified however if the radiologist sees something that we did not notice you will be called. We are treating this as a potential fracture with a walking boot and crutches. Weightbearing as tolerated on the left side. Do not do anything that provokes pain. Take the splint off on a daily basis and work the ankle a little bit. If there is no resolution or no brisk improvement you are being referred to orthopedics locally. If there is any other concern return to the ER. There should not be any substantial pain on that side when she is splinted and put at rest. Keep it elevated as much as possible. A cold pack at least intermittently over the next 24 hours would be a good thing. You may use ibuprofen or similar medications [id number] sparingly but they really should not be really necessary. Return immediately for increased pain fever or any other troubling symptoms. Dr. Tinoco is the orthopedist if you need him and his office number is being given to you by staff. Sepsis Event Note (ED) - Evaluation Sepsis Screening Result: No Definite Risk - Focused Exam Vital Signs: Vital Signs Temp Pulse Resp BP Pulse Ox 06/03/20 19:59 37.7 C 68 16 128/80 100 - My Orders Last 24 Hours: My Active Orders 06/03/20 20:01 Ankle Min 3V Lt [CR] Stat 06/03/20 20:32 DME for Discharge [COMM] Stat 06/03/20 20:33 DME for Discharge [COMM] Stat - Assessment/Plan Last 24 Hours: My Active Orders 06/03/20 20:01 Ankle Min 3V Lt [CR] Stat 06/03/20 20:32 DME for Discharge [COMM] Stat 06/03/20 20:33 DME for Discharge [COMM] Stat
--- NOTE | 2020-06-03 20:58 | CR ---
Left ankle: 4 views left ankle were obtained. Comparison: No prior ankle study is available Ankle mortise is symmetric. On several views there is a small bony density being seen of the cuneiform bone. Minimal displacement is seen. Small spur is noted at the attachment of the Achilles tendon to the calcaneus. No additional fracture or other bony abnormality is appreciated. Impression: 1. Small avulsion fracture off the cuneiform bone. 2. Minimal plantar spur. Diagnostic code #3
== END 2020-06-03 21:07 | disposition home or self-care (01) ==
LOC: JD.ED 19:46
DX: S93.402A Sprain of unspecified ligament of left ankle, initial encounter (principal); Z72.0 Tobacco use; Z91.013 Allergy to seafood; Z88.5 Allergy status to narcotic agent; Z88.0 Allergy status to penicillin; Z88.2 Allergy status to sulfonamides; X50.1XXA Overexertion from prolonged static or awkward postures, initial encounter
CPT/HCPCS: 73610-26-LT; 73610-LT; 99282; 99283

== ENCOUNTER 2024-05-05 14:19 | Emergency (ER) | payer BC ==
[2024-05-05 15:12] VITALS: BP 117/75; PULSE 74
[2024-05-05 16:34] LABS: BASOPHILS ABSOLUTE AUTO 0.1 K/mm3 (0.0-0.2); BASOPHILS PERCENT AUTO 1.1 % (0.0-1.0); EOSINOPHILS ABSOLUTE AUTO 0.2 K/mm3 (0.0-0.4); EOSINOPHILS PERCENT AUTO 3.2 % (0.0-6.0); HEMATOCRIT 41.3 % (37.0-47.0); HEMOGLOBIN 13.7 gm/dl (12.0-16.0); IMMATURE GRAN ABSOLUTE AUTO 0.01 K/mm3 (0.00-0.05); IMMATURE GRAN PERCENT AUTO 0.2 % (0.0-0.4); LYMPHOCYTES ABSOLUTE AUTO 2.5 K/mm3 (1.0-4.8); MEAN CORPUSCULAR HEMOGLOBIN 30.6 pg (28.0-32.0); MEAN CORPUSCULAR HGB CONC 33.2 g/dl (32.0-36.0); MEAN CORPUSCULAR VOLUME 92.2 fl (83.0-99.0); MEAN PLATELET VOLUME 10.2 fl (9.4-12.3); MONOCYTES ABSOLUTE AUTO 0.4 K/mm3 (0.0-0.8); MONOCYTES PERCENT AUTO 6.6 % (0.0-8.0); NEUTROPHILS ABSOLUTE AUTO 3.4 K/mm3 (1.8-7.7); NEUTROPHILS PERCENT AUTO 51.9 % (41.0-71.0); PLATELET COUNT,PLT 290 K/mm3 (150-400); RED BLOOD CELL COUNT 4.48 M/mm3 (4.10-5.30); WHITE BLOOD CELL COUNT,WBC 6.62 K/mm3 (3.9-11.3)
[2024-05-05] MEDS: Ondansetron 4 MG/2 ML SDV IVPUSH ONE (16:40)
[2024-05-05] MEDS: fentaNYL 100 MCG/2 ML SDV IVPUSH ONE (16:42)
[2024-05-05] MEDS: Sodium Chloride 0.9% 1,000 ML IV STA (16:46)
[2024-05-05 16:56] LABS: APPEARANCE,URINE CLEAR (Clear); BILIRUBIN,URINE NEGATIVE (Negative); COLOR,URINE YELLOW (Yellow); GLUCOSE,URINE NEGATIVE (Negative); KETONES,URINE NEGATIVE (Negative); LEUKOCYTE ESTERASE,URINE TRACE (Negative); NITRITE,URINE NEGATIVE (Negative); OCCULT BLOOD,URINE TRACE-INTACT (Negative); PROTEIN,URINE NEGATIVE (Negative); UROBILINOGEN,URINE 0.2 (0.2-1.0)
[2024-05-05 17:04] LABS: A/G RATIO 1.4 (1-2); ALANINE AMINOTRANSFERASE,ALT 19 U/L (14-59); ALKALINE PHOSPHATASE 46 U/L (46-116); ANION GAP 9.8 (5-15); ASPARTATE AMNIOTRANSFERASE,AST 15 U/L (15-37); BILIRUBIN TOTAL 0.3 mg/dL (0.2-1.0); BLOOD UREA NITROGEN,BUN 10 mg/dL (7-18); BUN/CREATININE RATIO 11.1 (14-18); C-REACTIVE PROTEIN <0.05 mg/dL (<0.30); CALCIUM 8.9 mg/dL (8.5-10.1); CARBON DIOXIDE,CO2 29 mEq/L (21-32); CHLORIDE,CL 106 mEq/L (98-107); CREATININE 0.9 mg/dL (0.55-1.02); EST CRCL DRUG DOSING (CG) 61.77 mL/min; ESTIMATED GFR 80 mL/min (>60); GLUCOSE RANDOM 87 mg/dL (70-99); LIPASE 36 U/L (16-77); POTASSIUM,K 3.8 mEq/L (3.5-5.1); PROTEIN TOTAL,TP 6.8 g/dl (6.4-8.2); SODIUM,NA 141 mEq/L (136-145)
[2024-05-05 17:22] LABS: RBC,URINE 0-5 /hpf (0-5); WBC,URINE 0-5 /hpf (0-5)
[2024-05-05 17:23] LABS: BACTERIA,URINE MODERATE /hpf (FEW); MUCUS,URINE FEW /hpf (FEW)
[2024-05-05] MEDS: methylPREDNISolone Sodium Succinate 125 MG/2 ML SDV IVPUSH ONE (18:32)
[2024-05-05] MEDS: diphenhydrAMINE 50 MG/ML SDV IVPUSH ONE (18:34)
[2024-05-05] MEDS: Ketorolac 30 MG/ML SDV IVPUSH ONE (18:36)
[2024-05-05] MEDS: Iopamidol 612 MG/ML 100 ML Bottle IVPUSH ONE (19:30)
[2024-05-05] MEDS: Sodium Chloride 0.9% 100 ML IV SCH (19:30)
== END 2024-05-05 20:42 | disposition home or self-care (01) ==
LOC: JD.ED 14:19
DX: R10.12 Left upper quadrant pain (principal); R10.13 Epigastric pain; Z88.2 Allergy status to sulfonamides; Z88.0 Allergy status to penicillin; Z88.8 Allergy status to other drugs, medicaments and biological substances; Z91.013 Allergy to seafood; Z79.899 Other long term (current) drug therapy; Z90.49 Acquired absence of other specified parts of digestive tract; Z90.710 Acquired absence of both cervix and uterus
CPT/HCPCS: 36415; 74019; 74019-26; 74177; 74177-26; 80053; 81001; 83690; 85025; 86140; 87086; 96374; 96375; 99284-25; J1200; J1885; J2405; J2919; J3010; J7030; Q9967

== ENCOUNTER 2025-01-23 17:53 | Emergency (ER) | payer BC ==
[2025-01-23] MEDS ORDERED: Sodium Chloride 0.9% 10 ML Syringe FLUSH PRN (18:26)
[2025-01-23 18:55] LABS: BASOPHILS ABSOLUTE AUTO 0.1 K/mm3 (0.0-0.2); BASOPHILS PERCENT AUTO 1.0 % (0.0-1.0); EOSINOPHILS ABSOLUTE AUTO 0.2 K/mm3 (0.0-0.4); EOSINOPHILS PERCENT AUTO 2.2 % (0.0-6.0); IMMATURE GRAN ABSOLUTE AUTO 0.01 K/mm3 (0.00-0.05); IMMATURE GRAN PERCENT AUTO 0.1 % (0.0-0.4); LYMPHOCYTES ABSOLUTE AUTO 2.4 K/mm3 (1.0-4.8); LYMPHOCYTES PERCENT AUTO 35.9 % (24.0-44.0); MEAN PLATELET VOLUME 10.0 fl (9.4-12.3); MONOCYTES ABSOLUTE AUTO 0.5 K/mm3 (0.0-0.8); MONOCYTES PERCENT AUTO 7.7 % (0.0-8.0); NEUTROPHILS ABSOLUTE AUTO 3.6 K/mm3 (1.8-7.7); NEUTROPHILS PERCENT AUTO 53.1 % (41.0-71.0); NRBC ABSOLUTE 0.00 (0.00-0.02); NRBC PERCENT 0.0 % (0.0-0.2); PLATELET COUNT,PLT 282 K/mm3 (150-400); RED BLOOD CELL COUNT 4.20 M/mm3 (4.10-5.30); WHITE BLOOD CELL COUNT,WBC 6.79 K/mm3 (3.9-11.3)
[2025-01-23 18:59] LABS: INR 1.02
[2025-01-23 19:02] LABS: A/G RATIO 1.3 (1-2); ALANINE AMINOTRANSFERASE,ALT 19.0 U/L (14-59); ASPARTATE AMNIOTRANSFERASE,AST 14.0 U/L (15-37); BILIRUBIN TOTAL 0.5 mg/dL (0.2-1.0); BLOOD UREA NITROGEN,BUN 14.0 mg/dL (7-18); CARBON DIOXIDE,CO2 29.0 mEq/L (21-32); CHLORIDE,CL 105.0 mEq/L (98-107); CREATININE 1.0 mg/dL (0.55-1.02); EST CRCL DRUG DOSING (CG) 55.01 mL/min; ESTIMATED GFR 70.0 mL/min (>60); GLUCOSE RANDOM 88.0 mg/dL (70-99); POTASSIUM,K 3.6 mEq/L (3.5-5.1); PROTEIN TOTAL,TP 6.7 g/dl (6.4-8.2); SODIUM,NA 142.0 mEq/L (136-145)
[2025-01-23 20:26] VITALS: BP 116/64; PULSE 72
== END 2025-01-23 19:41 | disposition home or self-care (01) ==
LOC: JD.ED 17:53
DX: S00.03XA Contusion of scalp, initial encounter (principal); Z90.49 Acquired absence of other specified parts of digestive tract; Z79.899 Other long term (current) drug therapy; Z88.5 Allergy status to narcotic agent; Z88.0 Allergy status to penicillin; Z88.2 Allergy status to sulfonamides; Z91.013 Allergy to seafood; W01.198A Fall on same level from slipping, tripping and stumbling with subsequent striking against other object, initial encounter; Y92.009 Unspecified place in unspecified non-institutional (private) residence as the place of occurrence of the external cause
CPT/HCPCS: 36415; 70450; 72125; 80053; 85025; 85610; 93005; 99284; J7030; 93010; 99283